=== PATIENT | female | born 1965 | race Caucasian/White ===

== ENCOUNTER 2019-03-29 09:49 | Inpatient (IN) | payer OTHER ==
[~2019-03-29] VITALS: Ht 165.1 cm; Wt 110.7 kg
--- NOTE | 2019-03-29 09:49 | NUR ---
Patient BIBA ACLS, transferred to bed 3. RN evaluating patient at bedside.
[2019-03-29 09:52] VITALS: BP 137/83
--- NOTE | 2019-03-29 09:52 | NUR ---
Dr. Curiel evaluating patient at bedside.
--- NOTE | 2019-03-29 09:52 | NUR ---
BIB EMS C/O SUDDEN ONSET SUBSTERNAL NON RADIATING CHEST PAIN, SOB, AND PALPITATIONS X 1 HOUR BLACK TOP RAKER AFTER DRINKING 4 BEERS. PT STATESS "I'M AN ALCOHOLIC," "I DRANK FOUR BEERS." "I FEEL SHAKEY." CHEST PAIN EXACERBATED BY DEEP INSPIRATION AND PALPATION. PT APPEARS ANXIOUS, TEARFUL DURING TRIAGE. STS "I'M DEPRESSED."+SI, NO PLAN, DENIES HI/AH/VH. AAO X4, FULL CLEAR SPEECH, NO FACIAL ASSYMETRY, EQUAL AJ STRENGTH TO UPPER AND LOWER EXTREMITIES. PT HAS STEADY GAIT, NOTED TO HAVE IMMOBILIZER BOOT DUE TO "FX". SUICIDE PRECAUTION INITIATED. SAFETY ENSURED. ER TO EVALUATE PT.
--- NOTE | 2019-03-29 09:58 | NUR ---
Patient transferred to bed 5 for further care. RN re-evaluating patient at bedside.
[2019-03-29] MEDS ORDERED: NACL 0.9% 1,000 ML IV ONE (10:00)
--- NOTE | 2019-03-29 10:09 | NUR ---
PHLEB at bedside for blood draw.
--- NOTE | 2019-03-29 10:15 | NUR ---
research technologist at bedside.
[2019-03-29 10:23] LABS: APPEARANCE,URINE CLEAR (CLEAR); BILIRUBIN,URINE NEGATIVE (NEGATIVE); BLOOD, URINE NEGATIVE (NEGATIVE); COLOR,URINE YELLOW (YELLOW); LEUKOCYTE ESTERASE ,URINE NEGATIVE (NEGATIVE); NITRITE, URINE NEGATIVE (NEGATIVE); PH,URINE 6.5 (5.0-9.0); UGLUCOSE NEGATIVE (NEGATIVE)
[2019-03-29 10:23] LABS: BASOPHILS % (AUTO) 0.3 % (0.0-2.0); EOSINOPHILS % (AUTO) 0.4 % (0.0-4.0); HEMATOCRIT 43.6 % (36-48); HEMOGLOBIN 14.4 g/dL (12.0-16.0); LYMPHOCYTES # (AUTO) 1.9 K/uL (2.5-16.5); LYMPHOCYTES % (AUTO) 17.5 % (20.5-51.1); MEAN CORPUSCULAR HEMOGLOBIN 29 pg (27-31); MEAN CORPUSCULAR HGB CONC 33 g/dL (33-37); MEAN CORPUSCULAR VOLUME 87.3 fL (80-94); MONOCYTES # (AUTO) 0.5 K/uL (0.8-1.0); MONOCYTES % (AUTO) 4.6 % (1.7-9.3); NEUTROPHILS # (AUTO) 8.3 K/uL (1.8-7.7); NEUTROPHILS % (AUTO) 77.2 % (42.2-75.2); PLATELET COUNT (AUTO) 233 K/uL (140-450); RED BLOOD CELL COUNT(AUTO) 4.99 MIL/uL (4.20-5.40); RED CELL DISTRIBUTION WIDTH 15.3 % (11.6-13.7); WHITE BLOOD COUNT (AUTO) 10.7 K/uL (4.8-10.8)
[2019-03-29 10:36] LABS: BARBITURATE, URINE NEG. ng/ml (NEG <=200); BENZODIAZEPINE, URINE NEG. ng/mL (NEG <=200); CANNABINOID, URINE NEG. ng/mL (NEG <=50); COCAINE, URINE NEG. ng/mL (NEG <=300); OPIATE, URINE NEG. ng/mL (NEG <=2000); PHENCYCLIDINE SCREEN,URINE NEG. ng/mL (NEG <=25)
[2019-03-29 10:40] LABS: ALBUMIN 3.8 g/dL (3.4-5.0); ANION GAP 17.9 (8-16); ASPARTATE AMINOTRANSFERASE 19 U/L (15-37); CARBON DIOXIDE 21.8 mmol/L (21-32); CHLORIDE 97 mmol/L (98-107); CREATININE 0.9 mg/dL (0.6-1.3); GFR ARICAN-AMERICAN 85 mL/min (>90); GLUCOSE 114 mg/dL (74-106); POTASSIUM 3.7 mmol/L (3.5-5.1); SODIUM SERUM 133 mmol/L (136-145); TOTAL BILIRUBIN 0.6 mg/dL (0.0-1.0); UREA NITROGEN, BLOOD 8 mg/dL (7-18)
[2019-03-29 10:59] LABS: SALICYLATE < 2.8 mg/dL (2.8-20.0)
[2019-03-29 11:00] LABS: ACETAMINOPHEN < 0.5 ug/ml (10-30)
--- NOTE | 2019-03-29 11:30 | NUR ---
PT C/O HEADACHE 03/23. INFORMED DR. OLSON AND HE WILL ORDER TYLENOL FOR HER.
[2019-03-29] MEDS ORDERED: ACETAMINOPHEN EXTRA STRENGTH 500 MG TAB PO ONE (11:35)
--- NOTE | 2019-03-29 11:45 | NUR ---
SPOKE WITH DR. MARSHALL IN REGARDS TO PT CONDITION, HE WILL TELEPSYCH NOW
--- NOTE | 2019-03-29 12:10 | NUR ---
PT STATES SHE FEELS DR. WHITNEY CARMONA AWARE
--- NOTE | 2019-03-29 12:17 | NUR ---
TELEPSYCH UNABLE TO COMMUNICATE WITH PATIENT D/T BLACK SCREEN ON THEIR END. TELEPSYCH MONITOR RE-STARTED. TELEPSYCH WILL CALL IT AND WILL CALL US SHORTLY.
[2019-03-29] MEDS ORDERED: LORazepam 1 MG TAB PO ONE ×2 (13:25→15:20)
--- NOTE | 2019-03-29 14:03 | NUR ---
PT ASLEEP IN BED, NO NEW NEEDS AT THIS TIME
--- NOTE | 2019-03-29 15:10 | NUR ---
PT REPORTING ANXIETY, SHE WOULD LIKE MORE MEDICATION. DR. OLSON MADE AWARE
--- NOTE | 2019-03-29 15:39 | NUR ---
PT STATES SHE IS FEELING MORE RELAXED AT THIS TIME.
[2019-03-29] MEDS ORDERED: QUEtiapine FUMARATE 25 MG TAB PO SCH (16:25)
[2019-03-29] MEDS ORDERED: DULoxetine 30 MG CAPDR PO SCH (16:25)
--- NOTE | 2019-03-29 16:34 | NUR ---
PT REPORTS FEELING ANXIOUS AGAIN AND WOULD LIKE MORE ANTI ANXIETY MEDICATION. DR. WHITNEY BUNDY.
--- NOTE | 2019-03-29 17:16 | NUR ---
CALLED PHARMACY FOR MEDICATIONS, THEY WILL BRING OVER
--- NOTE | 2019-03-29 18:05 | NUR ---
PT ASLEEP IN BED AT THIS TIME
--- NOTE | 2019-03-29 18:12 | NUR ---
Received packet via fax @17:55. Will begin looking for placement. ER made aware. Will contact with updates.
--- NOTE | 2019-03-29 18:55 | NUR ---
Dr. Gonzalez evaluating patient at bedside.
--- NOTE | 2019-03-29 19:30 | NUR ---
RECEIVED REPORT FROM GENE NGUYEN AT THIS TIME. PT RESTING IN BED. VSS.
[2019-03-29 20:27] VITALS: BP 137/95
--- NOTE | 2019-03-29 20:30 | NUR ---
PT WAS ADMITTED AT THIS TIME. PATIENT TRANSFERRED VIA WHEELCHAIR TO [facility] ROOM 110-A. REPORT GIVEN TO GENE HAMLIN (ICU FLOAT).
--- NOTE | 2019-03-29 20:30 | NUR ---
PT ARRIVED AT UNIT FROM ER THROUGH [facility]. PT AT BED AWAKE, COOPERATIVE, LETHARGIC, PERRLA 3MM, PAIN 0/10, BRISK, HEART RATE REGULAR 85, S1S2 PRESENT, BP 137/95 CAP REFILL <3S, PULSES 2+ BILATERAL UPPER AND LOWER EXTREMITIES, LUNG SOUNDS CLEAR THROUGHOUT, RESPIRATION REGULAR, UNLABORED, 18, 98% ON ROOM AIR, SYMMETRICAL, ABDOMEN SOFT ROUND NON DISTENDED NONTENDER, LAST BM 03/28/19, BLADDER, SOFT, NONDISTENDED, NONTENDER, SKIN INTACT, WARM, DRY, NONTENTING, COLOR APPROPRIATE FOR ETHNICITY. PT STRENGTH 5/5 BILATERAL UPPER EXTREMITIES, 5/5 ON LEFT LOWER EXTREMITIES, 4/5 ON RIGHT LOWER EXTREMITIES, PT HAS A BOOT ON RIGHT LEG FROM PREVIOUS ANKLE SURGERY PER PT, HOB AT 30 DEGREES, SIDERAILS UP X2, SITTER AT BEDSIDE. LEFT FOREARM 22 GAUGE, SALINE LOCK.
[2019-03-29] MEDS ORDERED: ONDANSETRON 4 MG/2 ML VIAL IVP PRN (22:00)
[2019-03-29] MEDS ORDERED: ACETAMINOPHEN 325 MG TAB PO PRN (22:00)
--- NOTE | 2019-03-29 22:11 | NUR ---
CALLED [facility] FOR PSYCH CONSULTATION. [phone] SPOKE WITH ZEENAT AND SAID WILL INFORM DR. TRAN.
[2019-03-29] MEDS: LORazepam 2 MG/ML VIAL IM/IVP PRN (23:10)
[2019-03-30] VITALS: BP 132/71
--- NOTE | 2019-03-30 | NUR ---
VITAL SIGNS TAKEN AND STABLE. NO C/O ANY DISCOMFORT NOTED.
[2019-03-30] MEDS: LORazepam 2 MG/ML VIAL IM/IVP PRN ×4 (02:06→15:07)
--- NOTE | 2019-03-30 02:06 | NUR ---
PT IS AWAKE AND LOOKS ANXIOUS. ATIVAN 1MG IVP GIVEN ORDERED. WILL CONTINUE TO MONITOR.
--- NOTE | 2019-03-30 04:00 | NUR ---
PT IS ASLEEP. NO S/S OF ANY DISCOMFORT NOTED. WILL CONTINUE TO MONITOR.
--- NOTE | 2019-03-30 06:11 | NUR ---
PT AWAKE AND ANXIOUS. WANTS HER ATIVAN. GIVEN ORDERED. WILL CONTINUE TO MONITOR.
--- NOTE | 2019-03-30 07:10 | NUR ---
RECEIVED BEDSIDE REPORT FROM RN LOU. PT STABLE, SLEEPING, BUT EASILY AROUSABLE. NO SIGNS OF DISTRESS NOTED. NO REDNESS, SWELLING, OR INFLAMMATION NOTED ON IV SITE. CALL ROY WITHIN REACH. BED IN LOWEST POSITION. SAFETY MEASURES IN PLACE. PLAN OF CARE REVIEWED. 1:1 SITTER.
--- NOTE | 2019-03-30 07:15 | NUR ---
ENDORSED PT IN STABLE CONDITION TO AM NURSE.
[2019-03-30 08:00] VITALS: BP 146/83
[2019-03-30] MEDS: FOLIC ACID 1 MG TAB PO SCH (08:20)
[2019-03-30] MEDS: MULTIVIT/MIN/CA/FE/FA 1 TAB PO SCH (08:20)
[2019-03-30] MEDS: THIAMINE 100 MG TAB PO SCH (08:21)
--- NOTE | 2019-03-30 08:23 | NUR ---
ADMINISTERED SCHEDULED MEDICATIONS AND PRN TYLENOL FOR 5/10 BLE PAIN. PT TOLERATED WELL. NO OTHER NEEDS AT THIS TIME.
[2019-03-30 08:58] LABS: ANION GAP 14.1 (8-16); CARBON DIOXIDE 25.9 mmol/L (21-32); CREATININE 0.9 mg/dL (0.6-1.3)
[2019-03-30 09:03] LABS: BASOPHILS # (AUTO) 0.1 K/uL (0.00-0.22); BASOPHILS % (AUTO) 0.6 % (0.0-2.0); EOSINOPHILS # (AUTO) 0.1 K/uL (0-0.4); EOSINOPHILS % (AUTO) 0.9 % (0.0-4.0); HEMATOCRIT 42.1 % (36-48); HEMOGLOBIN 14.1 g/dL (12.0-16.0); LYMPHOCYTES # (AUTO) 1.9 K/uL (2.5-16.5); LYMPHOCYTES % (AUTO) 20.7 % (20.5-51.1); MEAN CORPUSCULAR HEMOGLOBIN 30 pg (27-31); MEAN CORPUSCULAR HGB CONC 33 g/dL (33-37); MEAN CORPUSCULAR VOLUME 88.7 fL (80-94); MONOCYTES # (AUTO) 0.5 K/uL (0.8-1.0); MONOCYTES % (AUTO) 5.4 % (1.7-9.3); NEUTROPHILS # (AUTO) 6.8 K/uL (1.8-7.7); NEUTROPHILS % (AUTO) 72.4 % (42.2-75.2); PLATELET COUNT (AUTO) 241 K/uL (140-450); RED BLOOD CELL COUNT(AUTO) 4.75 MIL/uL (4.20-5.40); RED CELL DISTRIBUTION WIDTH 15.9 % (11.6-13.7); WHITE BLOOD COUNT (AUTO) 9.3 K/uL (4.8-10.8)
--- NOTE | 2019-03-30 09:12 | NUR ---
PATIENT HAS BEEN SCREENED AND CATEGORIZED LOW NUTRITION RISK. PATIENT WILL BE SEEN WITHIN 7 DAYS OF ADMISSION. 04/05/[address]
--- NOTE | 2019-03-30 09:33 | NUR ---
PAGED DR LAWLER.
--- NOTE | 2019-03-30 10:27 | NUR ---
ADMINISTERED PRN ATIVAN FOR C/O ANXIETY. PT TOLERATED WELL.
--- NOTE | 2019-03-30 10:35 | NUR ---
DR LAWLER AT THE BEDSIDE. RECEIVED VERBAL ORDERS FROM DR LAWLER TO CONTINUE ALL OF PATIENT'S HOME MEDICATIONS. CALLED PT'S PHARMACY [facility] REGARDING PT'S HOME MEDICATIONS. ORDERS PUT IN FOR SEROQUEL 400MG ONCE AT BEDTIME, BUSPAR 10MG TID, CYMBALTA 60MG PO QAM, HALDOL 10MG PO TID, LITHIUM 300MG PO TID, LAMICTAL 150MG PO BID, AND GABAPENTIN 300MG PO TID. DR LAWLER AWARE.
[2019-03-30] MEDS ORDERED: DULoxetine 30 MG CAPDR PO SCH (11:00)
--- NOTE | 2019-03-30 11:19 | NUR ---
ADMINISTERED SCHEDULED MEDICATIONS, PT TOLERATED WELL. NO OTHER NEEDS AT THIS TIME.
[2019-03-30] MEDS: GABAPENTIN 300 MG CAP PO SCH ×2 (12:55→16:38)
[2019-03-30] MEDS: busPIRone 5 MG TAB PO SCH ×2 (12:55→16:37)
[2019-03-30] MEDS: HALOPERIDOL 5 MG TAB PO SCH ×2 (12:55→16:37)
[2019-03-30] MEDS: LITHIUM CARBONATE 300 MG TAB PO SCH ×2 (12:56→16:38)
--- NOTE | 2019-03-30 12:57 | NUR ---
ADMINISTERED SCHEDULED MEDICATIONS, PT TOLERATED WELL. NO OTHER NEEDS AT THIS TIME. 1:1 SITTER.
--- NOTE | 2019-03-30 14:20 | NUR ---
PT STABLE, RESTING IN BED. NO OTHER NEEDS AT THIS TIME.
[2019-03-30] MEDS: HYDROcodone/APAP 5/325 MG 1 TAB TAB PO PRN (15:03)
--- NOTE | 2019-03-30 15:12 | NUR ---
ADMINISTERED PRN NORCO FOR 7/10 BLE PAIN AND PRN ATIVAN FOR C/O ANXIETY. PT TOLERATED WELL. NO OTHER NEEDS AT THIS TIME.
--- NOTE | 2019-03-30 15:24 | NUR ---
Service Trainer Note: At 3:25pm on 03/30/19 I called and spoke with Christine from [facility] , she stated they are working on inpatient psych placement and someone from her department will document an update on placement shortly.
[2019-03-30 16:00] VITALS: BP 139/86
--- NOTE | 2019-03-30 16:39 | NUR ---
VITAL SIGNS TAKEN, PT STABLE. ADMINISTERED SCHEDULED MEDICATIONS, PT TOLERATED WELL. NO OTHER NEEDS AT THIS TIME.
--- NOTE | 2019-03-30 17:24 | NUR ---
[facility] s/w Don no beds [place] s/w Alana no beds [facility] s/e Yari no beds [facility] s/w Mhor no beds [facility] Jason packet faxed for review [place] s/w Aisha packet faxed for review
--- NOTE | 2019-03-30 17:35 | NUR ---
PT STABLE, SLEEPING, BUT EASILY AROUSABLE. NO SIGNS OF DISTRESS NOTED. 1:1 SITTER.
--- NOTE | 2019-03-30 17:39 | NUR ---
RECEIVED CALL FROM BETO FROM [facility] REGARDING THE PT'S 5150 HOLD. PER BETO, SHE NEEDS ANOTHER COPY OF THE 5150 HOLD WITH CORRECT TIME. WILL FOLLOW UP WITH DR TRAN.
--- NOTE | 2019-03-30 18:30 | NUR ---
INFORMED DR TRAN THAT BETO FROM [facility] NEEDS ANOTHER COPY OF 5150 HOLD.
--- NOTE | 2019-03-30 19:15 | NUR ---
ENDORSED PT TO LESA RAM FOR CONTINUITY OF CARE. PT STABLE.
--- NOTE | 2019-03-30 19:16 | NUR ---
RECD. RESTING IN BED, AWAKE, A/OX4. RESPIRATION EVEN AND UNLABORED. CALM NOW, HAD BEEN CRYING WHILE SPEAKING WITH DR. TRAN AT 1825 THIS AFTERNOON. STATED SHE HAS NO SUICIDAL THOUGHTS BUT HAVING SO MUCH ANXIETY. SALINE LOCK AT THE LEFT FOREARM G22, PATENT AND INTACT. DENIES PAIN 0/10. WILL CONTINUE TO MONITOR PATIENT, ON 1:1 SITTER.
--- NOTE | 2019-03-30 19:20 | NUR ---
AMBULATED TO BR TO VOID, GAIT STEADY, WITH BOOT ON THE RIGHT LEG DUE TO ANKLE FRACTURE.
[2019-03-30] MEDS: QUEtiapine FUMARATE 100 MG TAB PO SCH (20:34)
--- NOTE | 2019-03-30 20:35 | NUR ---
MEDICATED WITH SEROQUEL ORDERED.
--- NOTE | 2019-03-30 21:15 | NUR ---
IN BED SLEEPING COMFORTABLY.
--- NOTE | 2019-03-30 21:40 | NUR ---
Patient's Plan of Care was discussed and reviewed with SURGICAL CONSULTANT: YO DHILLON
--- NOTE | 2019-03-30 21:58 | NUR ---
[facility] s/w Ana Laura no beds [place] s/w Kailyn no beds [facility] s/w Sonja no beds [place] s/w hilary Monahan faxed [place] s/w Di not able to accommodate due to 5150 MD not contracted
--- NOTE | 2019-03-30 23:34 | NUR ---
STILL SLEEPING COMFORTABLY IN BED.
[2019-03-31] VITALS: BP 110/56
--- NOTE | 2019-03-31 02:00 | NUR ---
GIVEN WARM BLANKET REQUESTED, CONTINUED SLEEPING.
[2019-03-31] MEDS: hydrOXYzine PAMOATE 25 MG CAP PO PRN ×3 (03:06→19:31)
[2019-03-31] MEDS: HYDROcodone/APAP 5/325 MG 1 TAB TAB PO PRN ×4 (03:09→17:50)
--- NOTE | 2019-03-31 03:10 | NUR ---
WITH ANXIETY, MEDICATED WITH VISTARIL ORDERED. ALSO NORCO FOR RIGHT LOWER LEG PAIN. AMBULATED TO BR TO VOID. BACK TO BED AFTER VOIDING.
--- NOTE | 2019-03-31 03:45 | NUR ---
NO ANXIETY, SLEEPING COMFORTABLY IN BED.
--- NOTE | 2019-03-31 06:36 | NUR ---
STILL SLEEPING COMFORTABLY IN BED. CONDITION REMAIN STABLE. WILL ENDORSE TO NEXT SITTER AND AM NURSE FOR CONTINUITY OF CARE.
--- NOTE | 2019-03-31 07:15 | NUR ---
RECEIVED REPORT FROM WIND FARM ENGINEER CHARGE NURSE FOR CONTINUITY OF CARE. PT IN STABLE CONDITION. RESPIRATIONS EVEN AND UNLABORED. IV INTACT AND PATENT. BED IN LOW POSITION. SITTER AT BEDSIDE. WILL CONTINUE TO MONITOR.
[2019-03-31 08:00] VITALS: BP 116/84
[2019-03-31] MEDS: busPIRone 5 MG TAB PO SCH ×3 (09:32→17:49)
[2019-03-31] MEDS: THIAMINE 100 MG TAB PO SCH (09:32)
--- NOTE | 2019-03-31 09:32 | NUR ---
GAVE ORDERED DUE MEDICATIONS AT THIS TIME. PT IN STABLE CONDITION. WILL CONTINUE TO MONITOR.
[2019-03-31] MEDS: LITHIUM CARBONATE 300 MG TAB PO SCH ×3 (09:33→17:49)
[2019-03-31] MEDS: GABAPENTIN 300 MG CAP PO SCH (09:33)
[2019-03-31] MEDS: DULoxetine 30 MG CAPDR PO SCH (09:33)
[2019-03-31] MEDS: FOLIC ACID 1 MG TAB PO SCH (09:33)
[2019-03-31] MEDS: MULTIVIT/MIN/CA/FE/FA 1 TAB PO SCH (09:33)
[2019-03-31] MEDS: HALOPERIDOL 5 MG TAB PO SCH ×3 (09:33→17:48)
--- NOTE | 2019-03-31 11:05 | NUR ---
GAVE VISTARIL PRN MEDICATION PER PT REQUEST. PT TOLERATED WELL. WILL CONTINUE TO MONITOR.
[2019-03-31] MEDS ORDERED: GABAPENTIN 300 MG CAP PO SCH (13:00)
--- NOTE | 2019-03-31 13:46 | NUR ---
GAVE PRN NORCO AT THIS TIME AND ORDERED DUE MEDICATIONS AT THIS TIME. PT IN STABLE CONDITION. SITTER AT BEDSIDE. WILL CONTINUE TO MONITOR.
[2019-03-31] MEDS: GABAPENTIN 100 MG, GABAPENTIN 300 MG PO SCH ×4 (13:47→17:49)
--- NOTE | 2019-03-31 15:02 | NUR ---
PT FATHER CALLED AT THIS TIME. PT IN STABLE CONDITION. WILL CONTINUE TO MONITOR.
[2019-03-31 16:00] VITALS: BP 126/79
--- NOTE | 2019-03-31 17:50 | NUR ---
TRUNG DAWKINS CHANGE NORCO TO FROM Q6HR TO Q4HR FOR PAIN.
--- NOTE | 2019-03-31 19:31 | NUR ---
RECEIVED BEDSIDE REPORT FROM [facility] NURSE MY. NO SOB NOTED. BREATHING EVEN AND UNLABORED. IV SITE ON LFA 22G, SL, PATENT, INTACT, ASYMPTOMATIC. SKIN INTACT, WARM AND DRY TO TOUCH. 1 ON 1 SITTER. BED IN LOW POSITION. PT C/O ANXIETY, GIVEN VISTARIL MD ORDERED. PT TOLERATED WELL. WILL CONTINUE TO MONITOR.
--- NOTE | 2019-03-31 19:46 | NUR ---
GAVE REPORT TO AUTOMATIC WHEEL LINE OPERATOR NURSE FOR CONTINUITY OF CARE. PT IN STABLE CONDITION.
[2019-03-31] MEDS: QUEtiapine FUMARATE 100 MG TAB PO SCH (20:34)
--- NOTE | 2019-03-31 20:34 | NUR ---
GIVEN SEROQUEL DRDhaval ORDERED. PT TOLERATED WELL. WILL CONTINUE TO MONITOR.
--- NOTE | 2019-03-31 22:45 | NUR ---
PT SLEEPING IN BED. NO ACUTE DISTRESS NOTED. BED IN LOW POSITION.
[2019-04-01] VITALS: BP 106/64
--- NOTE | 2019-04-01 | NUR ---
VS CHECKED, WITHIN PT'S BASELINE. WILL CONTINUE TO MONITOR.
--- NOTE | 2019-04-01 01:30 | NUR ---
PT SLEEPING IN BED. NO ACUTE DISTRESS NOTED.
[2019-04-01] MEDS: HYDROcodone/APAP 5/325 MG 1 TAB TAB PO PRN ×5 (03:01→18:21)
--- NOTE | 2019-04-01 03:01 | NUR ---
PT C/O 03/23 ANKLE PAIN, GIVEN NORCO MD ORDERED. PT TOLERATED WELL. WILL CONTINUE TO MONITOR.
--- NOTE | 2019-04-01 04:21 | NUR ---
Follow up calls were made to contracted psych facilities through out shift. Still there were no bed vacancies. [facility], spoke with Jason. [facility], spoke with Home. [facility], spoke with Chica Hansen. [facility], spoke with Cassandra. [facility], spoke with Cale. [facility], spoke with Jared. [facility] will continue to call for bed placement, will endorse to on coming shift.
--- NOTE | 2019-04-01 05:07 | NUR ---
PT SLEEPING IN BED. NO ACUTE DISTRESS NOTED.
--- NOTE | 2019-04-01 06:56 | NUR ---
PT C/O ANKLE PAIN, 03/23, GIVEN NORCO ORDERED. PT TOLERATED WELL. WILL CONTINUE TO MONITOR.
--- NOTE | 2019-04-01 07:01 | NUR ---
ENDORSED PT TO DAY SHIFT NURSEMY. PT IN STABLE CONDITION.
--- NOTE | 2019-04-01 07:02 | NUR ---
RECEIVED REPORT FROM [facility] NURSE HARRIET FOR CONTINUITY OF CARE. PT IN STABLE CONDITION. RESPIRATIONS EVEN AND UNLABORED. IV INTACT AND PATENT. SAFETY MEASURES IN PLACE. SITTER AT BEDSIDE. BED IN LOW POSITION. WILL CONTINUE TO MONITOR.
[2019-04-01] MEDS: hydrOXYzine PAMOATE 25 MG CAP PO PRN ×2 (07:55→17:03)
--- NOTE | 2019-04-01 07:57 | NUR ---
GAVE PRN VISTARIL MEDICATION PER PT REQUEST. PT IN STABLE CONDITION. WILL CONTINUE TO MONITOR.
[2019-04-01 08:00] VITALS: BP 106/80
[2019-04-01] MEDS: DULoxetine 30 MG CAPDR PO SCH (08:50)
[2019-04-01] MEDS: HALOPERIDOL 5 MG TAB PO SCH ×3 (08:50→17:04)
[2019-04-01] MEDS: FOLIC ACID 1 MG TAB PO SCH (08:51)
[2019-04-01] MEDS: GABAPENTIN 100 MG, GABAPENTIN 300 MG PO SCH ×6 (08:52→17:04)
[2019-04-01] MEDS: MULTIVIT/MIN/CA/FE/FA 1 TAB PO SCH (08:52)
[2019-04-01] MEDS: THIAMINE 100 MG TAB PO SCH (08:53)
[2019-04-01] MEDS: LITHIUM CARBONATE 300 MG TAB PO SCH ×3 (08:53→17:04)
[2019-04-01] MEDS: busPIRone 5 MG TAB PO SCH ×3 (08:54→17:04)
--- NOTE | 2019-04-01 09:00 | NUR ---
GAVE MEDICATIONS AT THIS TIME. PT TOLERATED WELL. RESPIRATIONS EVEN AND UNLABORED. SITTER AT BEDSIDE. BED IN LOW POSITION. WILL CONTINUE TO MONITOR.
--- NOTE | 2019-04-01 11:33 | NUR ---
PT LYING IN BED READING A MAGAZINE IN STABLE CONDITION. RESPIRATIONS EVEN AND UNLABORED. SITTER AT BEDSIDE. BED IN LOW POSITION. WILL CONTINUE TO MONITOR.
--- NOTE | 2019-04-01 13:15 | NUR ---
PT LYING IN BED FINISHING UP LUNCH AT THIS TIME. RESPIRATIONS EVEN AND UNLABORED. SITTER AT BEDSIDE. BED IN LOW POSITION. WILL CONTINUE TO MONITOR.
--- NOTE | 2019-04-01 15:29 | NUR ---
PT LYING IN BED SLEEP AT THIS TIME. RESPIRATIONS EVEN AND UNLABORED. SITTER AT BEDSIDE. BED IN LOW POSITION. WILL CONTINUE TO MONITOR.
[2019-04-01 16:00] VITALS: BP 128/85
--- NOTE | 2019-04-01 17:30 | NUR ---
PT LYING IN BED WORKING A WOURD PUZZLE. RESPIRATIONS EVEN AND UNLABORED. SITTER AT BEDSIDE. BED IN LOW POSITION. WILL CONTINUE TO MONITOR.
--- NOTE | 2019-04-01 18:22 | NUR ---
GAVE PAIN MEDICATION PRN NORCO PER PT REQUEST. PT TOLERATED WELL. RESPIRATIONS EVEN AND UNLABORED. SITTER AT BEDSIDE. BED IN LOW POSITION. WILL CONTINUE TO MONITOR.
--- NOTE | 2019-04-01 19:18 | NUR ---
GAVE REPORT TO WILDLIFE CONSERVATION OFFICER NURSE HARRIET FOR CONTINUITY OF CARE. PT IN STABLE CONDITION.
--- NOTE | 2019-04-01 19:19 | NUR ---
RECEIVED BEDSIDE REPORT FROM [facility] NURSE MY. NO SOB NOTED. BREATHING EVEN AND UNLABORED. IV SITE ON LFA 22G, SL, PATENT, INTACT, ASYMPTOMATIC. SKIN INTACT, WARM AND DRY TO TOUCH. 1 ON 1 SITTER. BED IN LOW POSITION. WILL CONTINUE TO MONITOR.
--- NOTE | 2019-04-01 20:34 | NUR ---
PT REFUSED SEROQUEL D/T PT WAS INFORMED TO BE DISCHARGED BY DR. TRAN. RECEIVED DISCHARGE ORDER FROM DR. ADAMS.
[2019-04-01 20:56] VITALS: BP 130/91
[2019-04-01] MEDS: QUEtiapine FUMARATE 100 MG TAB PO SCH (21:00)
[2019-04-01] MEDS ORDERED: PNEUMOCOCCAL VACCINE 23 MCG/0.5 ML VIAL IMVAC PRN (21:20)
--- NOTE | 2019-04-01 22:20 | NUR ---
GIVEN PNA VACCINE ORDERED. PT TOLERATE WELL.
--- NOTE | 2019-04-01 22:22 | NUR ---
IV LINE D/C. EDUCATE PT FOR DISCHARGE. PT'S FIANCE CAME TO PICK PT UP. ASSIST PT TO MAIN LOBBY WITH WHEELCHAIR.
== END 2019-04-01 22:22 | disposition home or self-care (01) | DRG 885 ==
LOC: MED 09:49 → MTU 19:05
PROVIDERS: ADMIT Internal Medicine Pulmonary Disease; ATTEND Internal Medicine Pulmonary Disease
PROC: 3E0234Z Introduction of Serum, Toxoid and Vaccine into Muscle, Percutaneous Approach (ICD-10-PCS; principal; 2019-04-01)
DX: F20.9 Schizophrenia, unspecified (principal); R45.851 Suicidal ideations; F31.9 Bipolar disorder, unspecified; I10 Essential (primary) hypertension; Z23 Encounter for immunization
CPT/HCPCS: 36415; 71045; 80048; 80053; 80178; 80305; 81003; 84484; 85025; 87081; 90732; 93005; 96360; 96361; 99285; G0480; G0482; J1630; J2060; J7030; Q0092; Q0177